=== PATIENT | female | born 1990 | race African-American/Black ===

== ENCOUNTER 2017-12-26 08:13 | Emergency (ER) | payer SELFPAY ==
[~2017-12-26 08:13] MED LIST: CEPH500C3 PO; DARV PO; Z.0.NO CURRENT MEDS
[2017-12-26 08:21] VITALS: BP 144/76; PULSE 86; RESP 16; TEMP 98.1; O2SAT 99
[2017-12-26] MEDS ORDERED: CYCL10TA PO (09:26)
--- NOTE | 2017-12-26 09:27 | PD ---
HPI Chief Complaint: Pain: Acute or Chronic Time Seen by Provider: 09:08 Travel History International Travel<30 days: No Contact w/Intl Traveler<30days: No Traveled to known affect area: No History of Present Illness HPI Patient 27-year-old female presents emergency department for evaluation of left shoulder pain. Patient states she was roughhousing with her children yesterday and 31 over her shoulder, she states she felt immediate pain afterwards, she denies any other injuries. Denies any elbow pain neck pain head injury chest back pelvis or lower extremity pain. No numbness and tingling. Patient states is worsened when she tries to range shoulder, achy, context as above, associated signs and symptoms as above. PFSH Past Medical History Asthma: Yes Diabetes: Yes Patient Takes Glucophage: No Tetanus Vaccination: > 5 Years ?: Not : 1 Para: 1 Social History Alcohol Use: Yes (weekly) Tobacco Use: Yes ("WEED" LAST USED THIS AFTERNOON) Substance Use: Yes ("WEED") Allergies-Medications (Allergen,Severity, Reaction): Coded Allergies: No Known Allergies (Verified Adverse Reaction, Unknown, 12/26/17) Reported Meds & Prescriptions Reported Meds & Active Scripts Active Flexeril (Cyclobenzaprine HCl) 10 Mg Tab 10 Mg PO TID PRN Review of Systems Except as stated in HPI: all other systems reviewed are Neg Physical Exam Narrative GENERAL: Well-nourished, well-developed patient. Minimal discomfort. SKIN: Focused skin assessment warm/dry. HEAD: Normocephalic. Atrial EYES: No scleral icterus. No injection or drainage. NECK: Supple, trachea midline. No JVD or lymphadenopathy. CARDIOVASCULAR: Regular rate and rhythm without murmurs, gallops, or rubs. RESPIRATORY: Breath sounds equal bilaterally. No accessory muscle use. GASTROINTESTINAL: Abdomen soft, non-tender, nondistended. MUSCULOSKELETAL: No cyanosis, or edema. There is no bony tenderness of the left shoulder, patient is not able to be passively range of motion past 90 of abduction, she has full passive range of motion of internal/external rotation and abduction are active range of motion is limited to 45 of abduction. Elbow and wrist full range of motion in flexion extension supination and pronation. Contralateral extremity is atraumatic. Pulses motor and sensory intact distally in all 4 extremities, compartments are soft BACK: Nontender without obvious deformity. No CVA tenderness. Data Data Last Documented VS Vital Signs Date Time Temp Pulse Resp B/P (MAP) Pulse Ox O2 Delivery O2 Flow Rate FiO2 12/26/17 08:21 98.1 86 16 144/76 (98) 99 Orders Orders Ibuprofen (Motrin) (12/26/17 09:30) Ed Discharge Order (12/26/17 09:27) MDM Medical Decision Making Medical Screen Exam Complete: Yes Emergency Medical Condition: Yes Differential Diagnosis Shoulder strain, shoulder sprain, shoulder fracture less likely. Narrative Course Patient room to the emergency department,. While there is any bony tenderness the patient has very limited passive range of motion. I therefore recommended her for an x-ray but she is fairly certain that she did not break any bones. She would like to try symptomatic management at this time, I recommended against a sling and discussed with her passive range of motion exercises given the low likelihood of fracture. She is counseled closely that if pain persists she should return to the emergency department for an x-ray Diagnosis Primary Impression: Shoulder pain, left Additional Instructions: Ibuprofen 600mg every 6 hours for one week. Then 200mg every 6 hours as needed for pain. Scripts Cyclobenzaprine (Flexeril) 10 Mg Tab 10 MG PO TID Y for MUSCLE SPASM, #20 TAB 0 Refills Prov: Daniel Sheldon MD 12/26/17 Disposition: 01 DISCHARGE HOME Condition: Stable Daniel Sheldon MD Dec 26, 2017 09:27
[2017-12-26] MEDS ORDERED: IBUPROFEN 600 MG TAB PO ONE (09:30)
== END 2017-12-26 09:49 | disposition home or self-care (01) ==
LOC: NEPD 08:13
DX: M25.512 Pain in left shoulder (principal); E11.9 Type 2 diabetes mellitus without complications; Z72.0 Tobacco use; Z87.09 Personal history of other diseases of the respiratory system
CPT/HCPCS: 99283